=== PATIENT | female | born 1950 | race Caucasian/White ===

== ENCOUNTER 2020-05-02 08:23 | Emergency (ER) | payer MEDICARE ==
[~2020-05-02] VITALS: Ht 154.9 cm; Wt 72.7 kg
[2020-05-02] MEDS ORDERED: IBUPROFEN 600 MG TABLET. PO ONE (08:45)
[2020-05-02] MEDS ORDERED: ACETAMINOPHEN 500 MG TABLET PO ONE (08:45)
--- NOTE | 2020-05-02 09:05 | RAD ---
Examination: 3 views of the left ankle and left foot HISTORY: History of fall, pain COMPARISON: None available. FINDINGS: There is mild displaced oblique fracture of the lateral malleolus. There is nondisplaced fracture of the posterior malleolus. Mild to moderate soft tissue swelling identified lateral to lateral malleol us. The alignment of the tarsal bones, tarsometatarsal joints, tarsophalangeal, interphalangeal gross ly appears unremarkable. Os peroneum is identified IMPRESSION: 1. Mild displaced fracture of the lateral malleolus and nondisplaced fracture of the posterior malleo carlos alberto. Electronically signed by: Jacques Lepe MD (05/02/2020 9:03 AM) [id number]
--- NOTE | 2020-05-02 09:11 | PHYS DOC ---
Adult General Chief Complaint Chief Complaint: LOWEREXTREMITY INJURY [facility] HPI Patient is a 70F presenting emergency department for new onset of left-sided ankle pain after an injury. Patient states that she was walking down the steps when she slipped and caused an inversion injury of the left ankle. Has been having pain and swelling over the left lateral ankle since that time. Has been having difficulty ambulating. Denies any head injury or loss of consciousness Review of Systems Review of Systems Constitutional: Denies fever or chills [] Eyes: Denies change in visual acuity, redness, or eye pain [] HENT: Denies nasal congestion or sore throat [] Respiratory: Denies cough or shortness of breath [] Cardiovascular: No additional information not addressed in HPI [] GI: Denies abdominal pain, nausea, vomiting, bloody stools or diarrhea [] : Denies dysuria or hematuria [] Musculoskeletal: Denies back pain or joint pain [] Integument: Denies rash or skin lesions [] Neurologic: Denies headache, focal weakness or sensory changes [] Endocrine: Denies polyuria or polydipsia [] All other systems were reviewed and found to be within normal limits, except as documented in this note. Current Medications Current Medications Current Medications Medications (Trade) Dose Ordered Sig/Lina Start Time Stop Time Status Last Admin Dose Admin Acetaminophen (Tylenol) 1,000 mg 1X ONCE 05/02/20 08:45 05/02/20 08:58 DC Ibuprofen (Motrin) 600 mg 1X ONCE 05/02/20 08:45 05/02/20 08:58 DC Allergies Allergies Allergies Coded Allergies Type Severity Reaction Last Updated Verified Penicillins Allergy Unknown 05/02/20 Yes erythromycin base Allergy Unknown 05/02/20 Yes Physical Exam Physical Exam Constitutional: Well developed, well nourished, no acute distress, non-toxic appearance. [] HENT: Normocephalic, atraumatic, bilateral external ears normal, oropharynx moist, no oral exudates, nose normal. [] Eyes: PERRLA, EOMI, conjunctiva normal, no discharge. [] Neck: Normal range of motion, no tenderness, supple, no stridor. [] Cardiovascular:Heart rate regular rhythm, no murmur [] Lungs & Thorax: Bilateral breath sounds clear to auscultation [] Abdomen: Bowel sounds normal, soft, no tenderness, no masses, no pulsatile masses. [] Skin: Warm, dry, no erythema, no rash. [] Back: No tenderness, no CVA tenderness. [] Extremities: No tenderness, no cyanosis, no clubbing, ROM intact, no edema. [] Neurologic: Alert and oriented X 3, normal motor function, normal sensory function, no focal deficits noted. [] Psychologic: Affect normal, judgement normal, mood normal. [] Radiology/Procedures Radiology/Procedures Examination: 3 views of the left ankle and left foot HISTORY: History of fall, pain COMPARISON: None available. FINDINGS: There is mild displaced oblique fracture of the lateral malleolus. There is nondisplaced fracture of the posterior malleolus. Mild to moderate soft tissue swelling identified lateral to lateral malleolus. The alignment of the tarsal bones, tarsometatarsal joints, tarsophalangeal, interphalangeal grossly appears unremarkable. Os peroneum is identified IMPRESSION: 1. Mild displaced fracture of the lateral malleolus and nondisplaced fracture of the posterior malleolus. Electronically signed by: Jacques Lepe MD (05/02/2020 9:03 AM) [id number] Heart Score Risk Factors: Risk Factors: DM, Current or recent (<one month) smoker, HTN, HLP, family history of CAD, obesity. Risk Scores: Risk Factors: DM, Current or recent (<one month) smoker, HTN, HLP, family history of CAD, obesity. Course & Med Decision Making Course & Med Decision Making Pertinent Labs and Imaging studies reviewed. (See chart for details) 70-year-old female presenting with new onset of left-sided ankle pain and significant swelling and tenderness over the lateral malleolus. Will obtain an x-ray and reevaluate. X-ray demonstrates a left lateral posterior malleolar fracture. Discussed with orthopedic surgeon on-call who agrees with placing a splint and follow-up in the office Dragon Disclaimer Dragon Disclaimer This electronic medical record was generated, in whole or in part, using a voice recognition dictation system. Departure Departure: Impression: Primary Impression: Left malleolar fracture Disposition: 01 DC HOME SELF CARE/HOMELESS Condition: GOOD Referrals: IHSAN HOYT MD (PCP) RAFI BOWEN MD Patient Instructions: Ankle Fracture Additional Instructions: Here for visiting our emergency department. You were seen for your ankle i njury. X-ray was done which does demonstrate evidence of a broken ankle. We placed a splint and recommend that you follow-up with an orthopedic surgeon within 3 to 5 days. Please return the emergency department immediately if you have any sudden worsening of your symptoms, numbness and weakness or fever greater than 101 F DANIEL SHEN MD May 02, 2020 09:11
[2020-05-02] MEDS ORDERED: TRAM50TA PO (09:40)
[2020-05-02 10:01] VITALS: BP 143/71
== END 2020-05-02 10:00 | disposition home or self-care (01) ==
LOC: ER 08:23
DX: S82.62XA Displaced fracture of lateral malleolus of left fibula, initial encounter for closed fracture (principal); Z88.0 Allergy status to penicillin; Z88.1 Allergy status to other antibiotic agents; X50.9XXA Other and unspecified overexertion or strenuous movements or postures, initial encounter; Y93.01 Activity, walking, marching and hiking; Y92.89 Other specified places as the place of occurrence of the external cause; Y99.8 Other external cause status
CPT/HCPCS: 29515; 73610; 73630; 96372; 99283

== ENCOUNTER → 2020-06-28 | Outpatient (CLI) | payer MEDICARE ==
[~2020-06-28] MED LIST: TRAM50TA PO
--- NOTE | 2020-06-28 18:41 | RAD ---
Left ankle 3 views COMPARISON: Left ankle x-rays of 05/02/2020 FINDINGS: Chavez type B fracture of the distal fibula is redemonstrated showing interval partial callus formatio n. The fracture line is still visible but alignment is near-anatomic. There is demineralization to th e distal fibula as well as to the distal tibia posteriorly. This could reflect a healing posterior ma lleolar fracture. The soft tissues are notable for minimal residual swelling around the ankle, marked ly improved from prior. IMPRESSION: Healing fracture of the distal fibula and probable healing fracture of the posterior malleolus as wel l. Alignment is near-anatomic. Electronically signed by: Aisha Morales MD (06/28/2020 6:39 PM) [id number]
== END ==
LOC: RAD 13:06
PROVIDERS: ATTEND Physician Assistant
DX: S82.832D Other fracture of upper and lower end of left fibula, subsequent encounter for closed fracture with routine healing (principal); M81.0 Age-related osteoporosis without current pathological fracture; X58.XXXD Exposure to other specified factors, subsequent encounter
CPT/HCPCS: 73610

== ENCOUNTER → 2020-07-06 | Outpatient (CLI) | payer MEDICARE ==
--- NOTE | 2020-07-06 11:47 | RAD ---
INDICATION: Screening for osteopenia/osteoporosis. Postmenopausal evaluation. COMPARISON: None. TECHNIQUE: Bone densitometry was performed through the lumbar spine and proximal femur. IMPRESSION: Lumbar Spine: BMD: 1.26 T-Score: 0.7 Range: Normal. Regions of sclerosis which could be from degenerative changes. Mild scoliotic curvatur e. Proximal Femur: BMD: 0.9 T-Score: -0.5 Range: Normal World Health Organization Criteria for Bone Density: T-Score: > -1.0: Normal Range < -1.0 to -2.5: Osteopenic Range < -2.5: Osteoporotic Range Electronically signed by: Sumeet Hawthorne MD (07/06/2020 11:45 AM) [id number]
--- NOTE | 2020-07-06 16:37 | RAD ---
EXAM: CT Lung Cancer Screening Chest without IV contrast INDICATION: Lung cancer screening. Nicotine dependency. . TECHNIQUE: Multi-detector row low dose CT images were acquired from the thoracic inlet through the up per abdomen without the use of IV contrast. Scanning parameters were adjusted for evaluation of lung parenchyma for developing lung carcinoma with limited patient exposure. Sagittal and coronal images w ere acquired from the transaxial data. All CT scans performed at this facility utilize dose optimizat ion techniques as appropriate to the exam, including the following: Automated exposure control and ad justment of the mA and/or KV according to patient size (this includes techniques or standardized prot ocols for targeted exams where dose is indication/reason for exam). COMPARISON: Abdomen pelvis CT with IV contrast of 04/15/2012 FINDINGS: The absence of IV contrast limits evaluation of soft tissue pathology. 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 MEDIASTINUM & ROXY: No adenopathy or masses. LUNGS: No pulmonary infiltrate, nodule, or other focal abnormality. PLEURAL SPACE: No pleural effusions. No pneumothorax. OSSEOUS & SOFT TISSUES: Unremarkable. ABDOMEN: The visualized portions of the upper abdomen are normal. Lung-RADS ASSESSMENT: LUNG-RADS CATEGORY 1: Negative/No nodules and definitely benign nodules. -- Continue annual screening with LDCT in 12 months. E2: Soft tissue structures and skeletal structures other than the lungs contain benign findings that do not require additional follow up IMPRESSION: Normal CT lung cancer screening. Electronically signed by: Aisha Morales MD (07/06/2020 4:35 PM) [id number]
--- NOTE | 2020-07-09 13:55 | RAD ---
DATE: 07/06/2020 9:52 AM EXAM: MAMMO RUSSELL SCREENING BILATERAL HISTORY: Screening COMPARISON: 03/14/2019 Bilateral CC and MLO views of the breasts were performed. Bilateral breast tomosynthesis was performed in CC and MLO projections. This study was interpreted with the benefit of Computerized Aided Detection (CAD). FINDINGS: Breast Density: SCATTERED The breast parenchyma shows scattered fibroglandular densities. Breast parenchyma level B No suspicious masses, microcalcifications or architectural distortion is present to suggest malignancy in either breast. The visualized axillae are unremarkable. IMPRESSION: No mammographic evidence of malignancy. BI-RADS CATEGORY: 1 NEGATIVE RECOMMENDED FOLLOW-UP: 12M 12 MONTH FOLLOW-UP Annual screening mammography is recommended, unless clinically indicated sooner based on symptoms or change in physical exam. PQRS compliance statement: Patient information was entered into a reminder system with a target due date for the next mammogram. Mammography is a sensitive method for finding small breast cancers, but it does not detect them all and is not a substitute for careful clinical examination. A negative mammogram does not negate a clinically suspicious finding and should not result in delay in biopsying a clinically suspicious abnormality. "Our facility is accredited by the [employer] Mammography [employer]."
== END ==
LOC: MAMMO 09:46
PROVIDERS: ATTEND Specialist
DX: Z12.31 Encounter for screening mammogram for malignant neoplasm of breast (principal); Z12.2 Encounter for screening for malignant neoplasm of respiratory organs; Z13.820 Encounter for screening for osteoporosis; Z00.00 Encounter for general adult medical examination without abnormal findings; N95.9 Unspecified menopausal and perimenopausal disorder; G95.89 Other specified diseases of spinal cord; M41.86 Other forms of scoliosis, lumbar region; F17.210 Nicotine dependence, cigarettes, uncomplicated
CPT/HCPCS: 71271; 77063; 77067; 77080

== ENCOUNTER → 2020-08-23 | Outpatient (CLI) | payer MEDICARE ==
--- NOTE | 2020-08-23 13:04 | RAD ---
EXAM: Left ankle, 3 views. HISTORY: Fracture. COMPARISON: 06/28/2020 FINDINGS: 3 views of the left ankle are obtained. There has been slight progressive callus formation surrounding a minimally displaced lateral malleolar fracture. The fracture line is slightly less dist inct. There is also suspected healing fracture of the posterior malleolus. 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 The ankle mortise intact. There is enthesopathy at the Achilles tendon insertion. IMPRESSION: 1. Slight interval progressive healing of a minimally displaced lateral malleolar fracture and suspec brooklynn posterior malleolar fracture. 2. 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 Electronically signed by: Yasmine Severino MD (08/23/2020 1:01 PM) [id number]
== END ==
LOC: RAD 12:48
PROVIDERS: ATTEND Physician Assistant
DX: S82.62XD Displaced fracture of lateral malleolus of left fibula, subsequent encounter for closed fracture with routine healing (principal); X58.XXXD Exposure to other specified factors, subsequent encounter
CPT/HCPCS: 73610

== ENCOUNTER → 2020-11-25 | Outpatient (CLI) | payer MEDICARE ==
--- NOTE | 2020-11-26 08:27 | RAD ---
EXAMINATION: US DPLX ARTR EXTREM LOWER BILAT INDICATION: 70 years, Female, claudication, spinal stenosis and back pain. COMPARISON: None TECHNIQUE: Grayscale, color and spectral Doppler evaluation of the bilateral lower extremity arterial system(s) was performed. FINDINGS: RIGHT PEAK SYSTOLIC VELOCITIES: COMMON FEMORAL ARTERY: 143 cm/s WAVEFORMS: Triphasic. DEEP FEMORAL ARTERY: 79 cm/s WAVEFORMS: Triphasic. PROXIMAL SUPERFICIAL FEMORAL ARTERY: 107 cm/s WAVEFORMS: Triphasic. MID SUPERFICIAL FEMORAL ARTERY: 107 cm/s WAVEFORMS: Triphasic. DISTAL SUPERFICIAL FEMORAL ARTERY: 91 cm/s WAVEFORMS: Triphasic. POPLITEAL ARTERY: 74 cm/s WAVEFORMS: Triphasic. DORSALIS PEDIS ARTERY: 52 cm/s WAVEFORMS: Triphasic. PROXIMAL POSTERIOR TIBIAL ARTERY: 71 cm/s WAVEFORMS: Triphasic. DISTAL POSTERIOR TIBIAL ARTERY: 91 cm/s WAVEFORMS: Triphasic. ANTERIOR TIBIAL ARTERY: 81 cm/s WAVEFORMS: Triphasic. PERONEAL ARTERY: 45 cm/s WAVEFORMS: Triphasic. LEFT PEAK SYSTOLIC VELOCITIES: COMMON FEMORAL ARTERY: 153 cm/s WAVEFORMS: Triphasic. DEEP FEMORAL ARTERY: 64 cm/s WAVEFORMS: Triphasic. PROXIMAL SUPERFICIAL FEMORAL ARTERY: 96 cm/s WAVEFORMS: Triphasic. MID SUPERFICIAL FEMORAL ARTERY: 110 cm/s WAVEFORMS: Triphasic. DISTAL SUPERFICIAL FEMORAL ARTERY: 72 cm/s WAVEFORMS: Triphasic. POPLITEAL ARTERY: 66 cm/s WAVEFORMS: Triphasic. DORSALIS PEDIS ARTERY: 25 cm/s WAVEFORMS: Biphasic. PROXIMAL POSTERIOR TIBIAL ARTERY: 84 cm/s WAVEFORMS: Triphasic. DISTAL POSTERIOR TIBIAL ARTERY: 110 cm/s WAVEFORMS: Triphasic. ANTERIOR TIBIAL ARTERY: 10 cm/s WAVEFORMS: Monophasic. PERONEAL ARTERY: 75 cm/s WAVEFORMS: Triphasic. IMPRESSION: Patent bilateral lower extremity arteries, without hemodynamically significant luminal stenosis. Electronically signed by: Jeet Daly MD (11/26/2020 8:24 AM) [id number]
--- NOTE | 2020-11-26 09:43 | RAD ---
XR LUMBAR SPINE 2-3V 11/26/2020 9:34 AM Indication: Reason: LOW BACK PAIN, SPINAL STENOSIS Comparison: None Technique: AP lateral and cone-down lumbosacral views of the lumbar spine. Findings: There are 5 nonrib-bearing vertebral bodies in the lumbar spine. Vertebral body heights and AP alignment are maintained. There is mild levoconvex scoliosis. There is disc space narrowing and m arginal osteophytosis at the L3-4, L4-5 and L5-S1 levels. There is hypertrophic facet joint degenerat so change with neural foraminal narrowing most prominent at these same levels. Atherosclerotic calci fications of the aorta are noted. Impression: Degenerative disc and facet disease as described above, worst at the right aspect of the L3-L4 level and left aspects of the L4-S1 levels. Electronically signed by: Sina Day (11/26/2020 9:40 AM) [id number]
== END ==
LOC: US 15:06
PROVIDERS: ATTEND Specialist
DX: M51.37 Other intervertebral disc degeneration, lumbosacral region (principal); M47.817 Spondylosis without myelopathy or radiculopathy, lumbosacral region; M41.86 Other forms of scoliosis, lumbar region; M48.07 Spinal stenosis, lumbosacral region; I70.0 Atherosclerosis of aorta
CPT/HCPCS: 72100; 93925

== ENCOUNTER → 2021-08-24 | Outpatient (CLI) | payer MEDICARE ==
--- NOTE | 2021-08-24 15:57 | RAD ---
EXAMINATION: MG BILAT SCREEN+RUSSELL CLINICAL HISTORY: Screening TECHNIQUE: Digital craniocaudal and mediolateral oblique views of the bilateral breasts obtained with 3-D tomosynthesis. COMPARISON: 07/06/2020, 03/14/2019, 01/30/2018, 01/26/2017 BREAST COMPOSITION: There are scattered areas of fibroglandular density. FINDINGS: Small focal asymmetry right upper outer quadrant in the retroareolar region. Indeterminate calcifications lateral left breast middle third approximately 9.5 cm from the nipple on cc view, likely near 3:00 position, with possible associated mass. This could be related to an invol uting fibroadenoma. IMPRESSION: Small focal asymmetry right upper outer quadrant, recommend spot compression views and possible targe brooklynn right breast ultrasound if indicated. Indeterminate calcifications lateral left breast, recommend spot compression magnification views and possible targeted left breast ultrasound if indicated. BI-RADS ASSESSMENT: Category 0: Incomplete - Need Additional Imaging Evaluation and/or Prior Mammograms for Comparison RECOMMENDATION: Bilateral diagnostic mammogram and possible targeted right and/or left breast ultrasound if indicated . PQRS compliance statement - Patient information was entered into a reminder system with a target due date for the next mammogram. "Our facility is accredited by the [employer] Mammography Program." Electronically signed by: Anoop Santoyo DO (08/24/2021 3:55 PM) [id number]
== END ==
LOC: MAMMO 14:55
PROVIDERS: ATTEND Specialist
DX: Z12.31 Encounter for screening mammogram for malignant neoplasm of breast (principal)
CPT/HCPCS: 77063; 77067

== ENCOUNTER → 2021-09-08 | Outpatient (CLI) | payer MEDICARE ==
--- NOTE | 2021-09-08 15:46 | RAD ---
DATE: Recalled from screening mammogram for bilateral focal asymmetries and EXAM: US BREAST LTD BALJIT, MG DIAGNOSTIC BILAT HISTORY: Recalled from screening mammogram for bilateral focal asymmetries in left breast calcificati ons. COMPARISON: 08/24/2021, 07/06/2020 Breast Density: SCATTERED The breast parenchyma shows scattered fibroglandular densities. Breast pare nchyma level B. FINDINGS: The 5 mm focal asymmetry in the upper outer right breast at anterior depth 1 to 2 cm the nipple persi sts on spot compression. This could possibly be a tortuous vessel. There are a few small benign-appea ring calcifications in this region. The indeterminate calcifications in the upper outer left breast middle to posterior depth have a mild ly suspicious amorphous appearance on spot magnification views and do not layer. There appears to be an underlying nodule measuring about 5 mm. Ultrasound of the right breast was performed from 9:00 to 12:00 1 to 2 cm from nipple. There is no ma ss or cyst. A few prominent ducts are seen in the retroareolar region. Normal lymph nodes in the righ t axilla. Ultrasound of the left breast was performed at 2-4 o'clock 9 to 10 cm posterior to the nipple. There is no mass or cyst. There are calcifications are not clearly seen by ultrasound. Normal lymph nodes i n the left axilla. IMPRESSION: 1. Mildly suspicious calcifications in the upper outer left breast, middle to posterior depth. There is suggestion of an underlying mass but this was not identified by ultrasound. This is also immediate ly adjacent to but appears separate from some adjacent vessels. Recommend stereotactic guided biopsy of the left breast calcifications. Care should be taken to avoid adjacent vessels. 2. Probably benign focal asymmetry in the upper outer right breast anterior depth without sonographic correlation. Recommend 6 month follow-up mammogram of the right breast with possible ultrasound. BI-RADS CATEGORY: 4 SUSPICIOUS ABNORMALITY- BIOPSY SHOULD BE CONSIDERED RECOMMENDED FOLLOW-UP: BIO BIOPSY RECOMMENDED Findings and recommendations were discussed by Dr. Grijalva with Dr. Linares's nurse at 3:42 PM on 09/08/2021. PQRS compliance statement: Patient information was entered into a reminder system with a target due d ate for the next mammogram. Mammography is a sensitive method for finding small breast cancers, but it does not detect them all a nd is not a substitute for careful clinical examination. A negative mammogram does not negate a clin ically suspicious finding and should not result in delay in biopsying a clinically suspicious abnorma lity. "Our facility is accredited by the [employer] Mammography Program." Electronically signed by: Alexia Grijalva MD (09/08/2021 3:44 PM) [id number]
== END ==
LOC: MAMMO 10:10
PROVIDERS: ATTEND Specialist
DX: N64.89 Other specified disorders of breast (principal)
CPT/HCPCS: 77066; 76642-50